=== PATIENT | female | born 1955 | race Caucasian/White ===

== ENCOUNTER 2017-02-01 16:51 | Emergency (ER) | payer BC ==
[~2017-02-01] VITALS: Ht 165.1 cm; Wt 83.9 kg
[2017-02-01 17:06] VITALS: BP_SYST 154
[2017-02-01] MEDS: DIPH-TET-PERTUS Vaccine 0.5 ML VIAL (ADACEL) I.M. ONE (17:53)
[2017-02-01 18:35] VITALS: BP_SYST 148
== END 2017-02-01 18:35 | disposition home or self-care (01) ==
LOC: EDBD 16:51 → SED 16:51
DX: S01.01XA Laceration without foreign body of scalp, initial encounter (principal); R03.0 Elevated blood-pressure reading, without diagnosis of hypertension; W01.10XA Fall on same level from slipping, tripping and stumbling with subsequent striking against unspecified object, initial encounter; Y93.01 Activity, walking, marching and hiking; Y92.89 Other specified places as the place of occurrence of the external cause; Y99.8 Other external cause status
CPT/HCPCS: 70450-TC; 90715; 99284